=== PATIENT | male | born 1985 | race Caucasian/White ===

== ENCOUNTER 2016-08-23 04:03 | Emergency (ER) | payer MEDICAID ==
[~2016-08-23] VITALS: Ht 175.3 cm; Wt 71.8 kg
[2016-08-23] MEDS ORDERED: MORPHINE SULFATE 4 MG/ML, 1ML ONE (04:53)
[2016-08-23] MEDS ORDERED: ONDANSETRON 2MG/ML, 2ML ONE (04:54)
[2016-08-23] MEDS ORDERED: MORPHINE SULFATE 4 MG/ML, 1ML IVPush PRN (05:00)
[2016-08-23] MEDS ORDERED: SODIUM CHLORIDE 0.9% 1,000ML IVBOLUS ONE (05:00)
[2016-08-23] MEDS ORDERED: ONDANSETRON 2MG/ML, 2ML IVPush ONE (05:00)
[2016-08-23 05:37] LABS: BLOOD UREA NITROGEN 17 mg/dL (7-18)
[2016-08-23 05:43] LABS: ASPARTATE AMINO TRANSFERASE 49 U/L (15-37)
[2016-08-23] MEDS ORDERED: METOCLOPRAMIDE 5 MG/ML, 2ML ONE (06:05)
[2016-08-23] MEDS ORDERED: METOCLOPRAMIDE 5 MG/ML, 2ML IVPush ONE (06:30)
[2016-08-23] MEDS ORDERED: OMNIPAQUE 350 MG/ML, 100ML BOTTLE ONE (06:36)
[2016-08-23 08:46] VITALS: BP 102/62
== END 2016-08-23 08:48 | disposition home or self-care (01) ==
LOC: ED 08:19
DX: N28.1 Cyst of kidney, acquired (principal)
CPT/HCPCS: 36415; 74177; 80053; 81003; 83690; 85025; 96361; 96374; 96375; 99285; J2405; J2765; J7030; Q9967

== ENCOUNTER 2016-08-29 11:26 | Emergency (ER) | payer MEDICAID ==
[~2016-08-29] VITALS: Ht 175.3 cm; Wt 73.0 kg
[2016-08-29 12:35] VITALS: BP 111/62
== END 2016-08-29 12:39 | disposition home or self-care (01) ==
LOC: ED 12:33
DX: K64.8 Other hemorrhoids (principal)
CPT/HCPCS: 99284

== ENCOUNTER 2016-10-26 13:58 | Emergency (ER) | payer MEDICAID ==
[~2016-10-26] VITALS: Ht 175.3 cm; Wt 68.1 kg
[2016-10-26 14:09] VITALS: BP 100/64
== END 2016-10-26 16:14 | disposition home or self-care (01) ==
LOC: ED 16:08
DX: J20.8 Acute bronchitis due to other specified organisms (principal); J02.8 Acute pharyngitis due to other specified organisms; B97.89 Other viral agents as the cause of diseases classified elsewhere
CPT/HCPCS: 71020; 93005; 99284

== ENCOUNTER 2017-10-30 08:08 | Emergency (ER) | payer MEDICAID ==
[~2017-10-30] VITALS: Ht 175.3 cm; Wt 67.9 kg
[2017-10-30 09:01] LABS: BASOPHILS # (AUTO) 0.09 x10^3/uL (0-0.1); BASOPHILS % (AUTO) 1 % (0-1); EOSINOPHILS # (AUTO) 0.24 x10^3/uL (0-0.4); EOSINOPHILS % (AUTO) 3 % (1-7); LYMPHOCYTES # (AUTO) 2.17 x10^3/uL (1-3.4); LYMPHOCYTES % (AUTO) 29 % (22-44); MD NO; MEAN CORPUSCULAR HEMOGLOBIN 32.9 pg (27.5-34.5); MEAN CORPUSCULAR HGB CONC 34.2 g/dL (33.2-36.2); MEAN CORPUSCULAR VOLUME 96.1 fL (81-97); MEAN PLATELET VOLUME 8.1 fL (7.4-10.4); MONOCYTES # (AUTO) 0.57 x10^3/uL (0.2-0.8); MONOCYTES % (AUTO) 8 % (2-9); NEUTROPHILS # (AUTO) 4.42 x10^3/uL (1.8-6.8); NEUTROPHILS % (AUTO) 59 % (42-75); PLATELET COUNT 248 x10^3/uL (130-400); RED BLOOD COUNT 4.41 x10^6/uL (4.38-5.82); RED CELL DISTRIBUTION WIDTH 12.8 % (9.4-14.8)
[2017-10-30 09:12] LABS: ALANINE AMINOTRANSFERASE 33 U/L (12-78); ALBUMIN 3.5 g/dL (3.4-5.0); ANION GAP 5 mmol/L (5-15); CALCIUM 8.2 mg/dL (8.5-10.1); CHLORIDE 106 mmol/L (98-107); CREATININE 0.96 mg/dL (0.7-1.3)
[2017-10-30 09:14] LABS: ALKALINE PHOSPHATASE 72 U/L (45-117); BILIRUBIN,TOTAL 0.2 mg/dL (0.2-1.0)
[2017-10-30 10:12] VITALS: BP 118/75
== END 2017-10-30 10:27 | disposition home or self-care (01) ==
LOC: ED 09:04
DX: R10.11 Right upper quadrant pain (principal); R10.13 Epigastric pain; F17.200 Nicotine dependence, unspecified, uncomplicated
CPT/HCPCS: 36415; 76700; 80053; 83690; 85025; 99285

== ENCOUNTER 2018-09-18 22:51 | Emergency (ER) | payer MEDICAID ==
[~2018-09-18] VITALS: Ht 175.3 cm; Wt 69.8 kg
--- NOTE | 2018-09-18 23:35 | NUR ---
pt to room from lobby
[2018-09-19] MEDS ORDERED: ONDANSETRON ODT 4 MG PO ONE
[2018-09-19] MEDS ORDERED: SODIUM CHLORIDE FLUSH 10ML SYR IVF ONE
--- NOTE | 2018-09-19 | NUR ---
OMAR RING WAS IN TO EVAL PT. AND DISCUSS POC.
[2018-09-19] MEDS ORDERED: ONDANSETRON ODT 4 MG ONE (00:04)
--- NOTE | 2018-09-19 00:08 | NUR ---
PT. C/O DIFFUSE ABD PAIN/N/V/D "STARTED SHORTLY AFTER I ATE TONGIHT". PT. MEDICATED PER MAY. ALL SAFETY MEASURES OBSERVED.
[2018-09-19 00:21] LABS: BASOPHILS # (AUTO) 0.04 x10^3/uL (0-0.1); BASOPHILS % (AUTO) 0 % (0-1); EOSINOPHILS # (AUTO) 0.06 x10^3/uL (0-0.4); EOSINOPHILS % (AUTO) 1 % (1-7); LYMPHOCYTES % (AUTO) 10 % (22-44); MD NO; MEAN CORPUSCULAR HEMOGLOBIN 31.5 pg (27.5-34.5); MEAN CORPUSCULAR HGB CONC 33.1 g/dL (33.2-36.2); MEAN CORPUSCULAR VOLUME 95.1 fL (81-97); MEAN PLATELET VOLUME 8.2 fL (7.4-10.4); MONOCYTES # (AUTO) 0.52 x10^3/uL (0.2-0.8); MONOCYTES % (AUTO) 4 % (2-9); NEUTROPHILS # (AUTO) 10.72 x10^3/uL (1.8-6.8); NEUTROPHILS % (AUTO) 85 % (42-75); PLATELET COUNT 242 x10^3/uL (130-400); RED BLOOD COUNT 4.75 x10^6/uL (4.38-5.82); RED CELL DISTRIBUTION WIDTH 14.2 % (9.4-14.8)
[2018-09-19 00:31] LABS: ALBUMIN 3.9 g/dL (3.4-5.0); ANION GAP 7 mmol/L (5-15); CALCIUM 8.8 mg/dL (8.5-10.1); CHLORIDE 108 mmol/L (98-107)
--- NOTE | 2018-09-19 00:31 | NUR ---
REQUESTED URINE SAMPLE FROM PT.
[2018-09-19 00:35] LABS: ALANINE AMINOTRANSFERASE 23 U/L (12-78); ALKALINE PHOSPHATASE 97 U/L (45-117); BILIRUBIN,TOTAL 0.2 mg/dL (0.2-1.0); CREATININE 1.13 mg/dL (0.7-1.3); TOTAL PROTEIN 7.8 g/dL (6.4-8.2)
[2018-09-19] MEDS ORDERED: SODIUM CHLORIDE 0.9% 1,000ML IVBOLUS ONE (01:00)
[2018-09-19] MEDS ORDERED: DICYCLOMINE 20 MG TABLET PO ONE (01:00)
[2018-09-19] MEDS ORDERED: DICYCLOMINE 20 MG TABLET ONE (01:10)
[2018-09-19] MEDS ORDERED: ACETAMINOPHEN 500 MG TABLET ONE (01:16)
--- NOTE | 2018-09-19 01:17 | NUR ---
PT. WAS ABLE TO PROVIDE URINE SAMPLE, HOWEVER DR. SCOTT DOES NOT WANT URINE SENT HE STATES IT'S NOT NEEDED NOW.
[2018-09-19] MEDS ORDERED: ACETAMINOPHEN 500 MG TABLET PO ONE (01:30)
[2018-09-19 02:20] VITALS: BP 110/74
== END 2018-09-19 02:21 | disposition home or self-care (01) ==
LOC: ED 23:59
DX: R10.84 Generalized abdominal pain (principal); R11.2 Nausea with vomiting, unspecified; R19.7 Diarrhea, unspecified
CPT/HCPCS: 36415; 80053; 83690; 85025; 93005; 99284; Q0162